=== PATIENT | male | born 1985 | race African-American/Black ===

== ENCOUNTER 2017-06-08 11:53 | Emergency (ER) | payer OTHER ==
[2017-06-08 11:56] VITALS: BP 142/89; PULSE 68; RESP 14; TEMP 98.2; O2SAT 99
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
[2017-06-08] MEDS ORDERED: CYCL10TA PO (13:44)
[2017-06-08] MEDS ORDERED: NAPR500 PO (13:44)
== END 2017-06-08 13:55 | disposition home or self-care (01) ==
LOC: NEPK 11:53
DX: M54.6 Pain in thoracic spine (principal); M54.2 Cervicalgia; V43.62XA Car passenger injured in collision with other type car in traffic accident, initial encounter
CPT/HCPCS: 71010; 72050; 72072; 99284